=== PATIENT | female | born 1965 | race Caucasian/White ===

== ENCOUNTER 2021-06-09 18:11 | Outpatient (REF) | payer OTHER, SELFPAY ==
--- NOTE | ~2021-06-09 | MR_ITS ---
MRI OF THE BRAIN WITHOUT IV CONTRAST INDICATION: Ataxia. Rule out white matter disease. COMPARISON: None available. TECHNIQUE: Multiplanar multisequence MR imaging of the brain was obtained without IV contrast. FINDINGS: There is no hydrocephalus, extra-axial surface collection, or herniation. There is moderate chronic microangiopathy. The major flow voids at the skull base are preserved. There is no acute infarct on diffusion-weighted imaging. There is a band of chronic hemosiderin staining and gliosis within the left cerebellar hemisphere, presumably from an old hemorrhage in this location. No MRI evidence of acute blood products. The craniocervical junction is normal. Osseous marrow signal intensity is homogenous. The visualized soft tissues are unremarkable. A large retention cyst significantly opacifies the left sphenoid sinus. MR/MR head/brain wo con IMPRESSION: There is a band of chronic hemosiderin staining and gliosis within the left cerebellar hemisphere, presumably from an old hemorrhage in this location. No MRI evidence of acute blood products. There is moderate chronic microangiopathy. A large retention cyst significantly opacifies the left sphenoid sinus.
== END 2021-06-09 18:12 | disposition home or self-care (01) ==
LOC: HO.MRI 18:11
PROVIDERS: Visit Provider Psychiatry & Neurology Neurology
DX: R27.0 Ataxia, unspecified (principal)
CPT/HCPCS: 70551

== ENCOUNTER 2025-09-02 12:05 | Outpatient (AMB) | payer OTHER, SELFPAY ==
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
== END 2025-09-02 12:48 | disposition home or self-care (01) ==
LOC: HO.HSM 12:06
PROVIDERS: PCP Internal Medicine; Visit Provider Registered Nurse
DX: I61.4 Nontraumatic intracerebral hemorrhage in cerebellum (principal)
CPT/HCPCS: 99214

== ENCOUNTER → 2025-09-02 12:05 | Outpatient (BNVA) | payer OTHER, SELFPAY | PROVIDERS: PCP Internal Medicine; Visit Provider Registered Nurse | DX: I61.4 Nontraumatic intracerebral hemorrhage in cerebellum (principal) | CPT/HCPCS: 99212 ==